=== PATIENT | female | born 1945 | race American Indian/Alaskan Native ===

== ENCOUNTER 2017-07-16 09:31 | Day surgery (SDC) | payer MEDICARE ==
[2017-07-16 11:12] VITALS: O2SAT 100
[2017-07-16] MEDS ORDERED: Lidocaine Hydrochloride 5 ML INJ ONE (12:05)
[2017-07-16] MEDS ORDERED: Propofol 10 mg/ml Inj (20 ML) ONE (12:05)
--- NOTE | 2017-07-16 12:08 | CP.SDSHP ---
Same Day Surgery H & P - History Proposed Procedure: EGD/ COLONSCOPY Pre-Op Diagnosis: SEE NOTES - Previous Medical/Surgical History Cardiac: Hypertension, Angina Endocrine/Metabolic: Diabetes Neuro: Backaches, Other - Allergies Allergies: Allergies No Known Allergies Allergy (Verified 07/16/17 10:03) - Physical Exam General Appearance: N Vital Signs: Vital Signs 07/16/17 10:56 Temperature 97 F L Pulse Rate 52 L Respiratory 20 Rate Blood Pressure 160/62 H O2 Sat by Pulse 100 Oximetry Mental Status: Alert & Oriented x3 Neuro: WNL Heart: Other Lungs: WNL GI: Other - {Optional Preform as Required} Breast: WNL Abdomen: Other Rectal: Other Integument: WNL : WNL Ortho: Other ENT: WNL - Impression Pt. Evaluated Today:Candidate for Anesthesia & Procedure: Yes - Date & Time Time: 12:08 Short Stay Discharge - Short Stay Discharge Admitting Diagnosis/Reason for Visit: FUNCTIONAL DYSPEPSIA Disposition: HOME/ ROUTINE
[2017-07-16 12:55] VITALS: RESP 12
[2017-07-16] MEDS ORDERED: Belladonna-Phenobarbital PO ONE (12:55)
[2017-07-16 13:57] VITALS: BP 165/78; PULSE 52; TEMP 97.2
== END 2017-07-16 13:40 | disposition home or self-care (01) ==
LOC: C.ENDO 09:31
PROVIDERS: ATTEND Specialist
DX: K29.60 Other gastritis without bleeding (principal); K29.80 Duodenitis without bleeding; K44.9 Diaphragmatic hernia without obstruction or gangrene; K64.8 Other hemorrhoids; K57.90 Diverticulosis of intestine, part unspecified, without perforation or abscess without bleeding
CPT/HCPCS: 43239; 45380; 82948; 88305; 88342; J2704; J3010

== ENCOUNTER 2018-09-08 11:52 | Outpatient (CLI) | payer MEDICARE | END 2018-09-08 11:53 | disposition home or self-care (01) | LOC: C.MAMMO 11:52 ==